=== PATIENT | male | born 1965 | race Caucasian/White ===

== ENCOUNTER 2019-02-18 09:56 | Day surgery (SDC) | payer OTHER ==
[2019-02-18] MEDS ORDERED: MIDAZOLAM 1 MG/ML 2 ML INJ ×3 (12:31→12:32)
[2019-02-18] MEDS ORDERED: FENTAnyl 50 MCG/ML VIAL (12:32)
== END 2019-02-18 13:51 | disposition home or self-care (01) ==
LOC: GIL 09:56
DX: K92.1 Melena (principal); K64.8 Other hemorrhoids; D12.6 Benign neoplasm of colon, unspecified; E11.9 Type 2 diabetes mellitus without complications; I10 Essential (primary) hypertension
CPT/HCPCS: 45380; 82962; 88305